=== PATIENT | female | born 1960 | race Caucasian/White ===

== ENCOUNTER 2017-05-21 10:40 | Emergency (ER) | payer OTHER ==
[~2017-05-21] VITALS: Ht 175.3 cm; Wt 97.6 kg
[2017-05-21 10:40] VITALS: TEMP 36.9
[~2017-05-21 10:40] MED LIST: CLOP1TAB5 PO; IPRA1AER2 INH; METO-452 PO; NCDT21X TD; OXYC5TAB PO; SERT50TA PO
[2017-05-21] MEDS ORDERED: METO25TA4 PO (11:10)
[2017-05-21] MEDS ORDERED: TRAZ1TAB52 PO (11:10)
[2017-05-21] MEDS ORDERED: GABA600T PO (11:10)
[2017-05-21] MEDS ORDERED: OMEP20TA PO (11:10)
[2017-05-21] MEDS ORDERED: TRAZ-119 PO (11:10)
[2017-05-21] MEDS ORDERED: WARF5TAB7 PO ×2 (11:10)
[2017-05-21] MEDS ORDERED: ABL10 PO (11:10)
[2017-05-21] MEDS ORDERED: SODIUM CHLORIDE 0.9% 1000ML 1,000 ML IV STA (11:23)
[2017-05-21] MEDS ORDERED: PROMETHAZINE HCL INJ 25 MG in SODIUM CHLORIDE 0.9% 50ML 50 ML IV STA (11:23)
--- NOTE | 2017-05-21 11:27 | EMERGENCY ROOM VISIT NOTE ---
History Report prepared by Rylee: Swati Torres Under the Supervision of: Dr. Melo Lowe D.O. First contact with patient: 11:12 Chief Complaint: HEADACHE Stated Complaint: BREATHING DIFFICULTY History of Present Illness The patient is a 56 year old female who presents to the Emergency Room with complaints of a headache beginning 2 days ago. She states that the pain is in the back of her head and that it radiates to the top of her head. She rates the pain at a 7/10. The patient reports having weakness in right arm but that she has had this since she had a stroke. She states that she did not take medication for her headache and states that it is worse at night. She also reports having chest pain when she takes a deep breath and reports having a cough. The patient reports having a pacemaker and a mechanical valve, and states that she is on Coumadin. She states that she smokes. Source of History: patient Onset: 2 days ago Position: head Symptom Intensity: rated at a 7/10 Quality: other (headache ) Associated Symptoms: + cough, + chest pain Review of Systems See HPI for pertinent positives & negatives. A total of 10 systems reviewed and were otherwise negative. Past Medical & Surgical Medical Problems: (1) Depression Surgical Problems: (1) Mitral valve replaced Family History No pertinent family history Social History Smoking Status: Current Every Day Smoker Drug Use: marijuana, other Current/Historical Medications Scheduled Aripiprazole (Abilify), 10 MG PO DAILY Gabapentin (Neurontin), 600 MG PO TID Metoprolol Succinate (Toprol Xl), 25 MG PO DAILY Omeprazole (Omeprazole), 20 MG PO DAILY Trazodone Hcl (Desyrel), 50 MG PO DAILY Trazodone Hcl (Desyrel), 150 MG PO DAILY Warfarin Sod (Jantoven), 10 MG PO WK Warfarin Sod (Jantoven), 5 MG PO [id number] Allergies Coded Allergies: Oxytetracycline (Verified Allergy, Unknown, TERRAMYCIN, 02/21/13) Aspirin (Verified Allergy, unk, 02/14/13) Cephalexin (Verified Allergy, unk, 02/14/13) Physical Exam Vital Signs Date Time Temp Pulse Resp B/P (MAP) Pulse Ox O2 Delivery O2 Flow Rate FiO2 05/21/17 14:13 58 13 152/87 94 05/21/17 12:59 50 14 140/74 94 Room Air 05/21/17 12:34 54 20 152/89 98 Room Air 05/21/17 12:09 50 15 135/72 94 Room Air 05/21/17 12:02 93 Room Air 05/21/17 12:02 93 Room Air 05/21/17 10:53 73 05/21/17 10:40 36.9 73 14 122/89 97 Room Air Physical Exam GENERAL: Patient is awake, alert, and in no acute distress. Patient is resting comfortably and showing no signs of anxiety EYES: The conjunctivae are clear. The pupils are round and reactive. EARS, NOSE, MOUTH AND THROAT: The nose is without any evidence of any deformity. Mucous membranes are moist tongue is midline NECK: The neck is nontender and supple. RESPIRATORY: Normal respiratory effort is noted there is no evidence of wheezing rhonchi or rales CARDIOVASCULAR: Regular rate and rhythm noted there no murmurs rubs or gallops normal S1 normal S2 GASTROINTESTINAL: The abdomen is soft. Bowel sounds are present in all quadrants. Abdomen is nontender MUSCULOSKELETAL/EXTREMITIES: There is no evidence of gross deformity full range of motion is noted in the hips and shoulders SKIN: There is no obvious evidence of any rash. There are no petechiae, pallor or cyanosis noted. NEUROLOGIC: Patient is awake alert and oriented x3 strength is symmetric, no drift in upper extremity Medical Decision & Procedures ER Provider Diagnostic Interpretation: Radiology results as stated below per my review and radiologist interpretation: CT HEAD WITHOUT CONTRAST (CT) CLINICAL HISTORY: Left-sided headache. Weakness. COMPARISON STUDY: No previous studies for comparison. TECHNIQUE: Axial CT of the brain is performed from the vertex to the skull base. IV contrast was not administered for this examination. A dose lowering technique was utilized adhering to the principles of ALARA. CT DOSE: 659.15 mGycm FINDINGS: No intra or extra-axial mass lesions are visualized. There is no CT evidence of acute cortical infarction. There is no evidence of midline shift. There is no acute hemorrhage. No calvarial fractures are visualized. There are patchy white matter hypodensities likely on a small vessel basis. There is an old left MCA distribution infarct. There is no evidence of pathologic ventricular dilatation. There is no evidence of acute sinusitis. There is asymmetric mastoid pneumatization, likely chronic IMPRESSION: Old left MCA distribution infarct. No acute intracranial findings Electronically signed by: Seth Carr M.D. 05/21/2017 12:30 PM Dictated Date/Time: 05/21/2017 12:29 PM SINGLE VIEW CHEST CLINICAL HISTORY: Change in mental status. Weakness. FINDINGS: An AP, portable, upright chest radiograph is compared to study dated 02/14/2013. The examination is degraded by portable technique and patient rotation. A 2-lead cardiac pacemaker is unchanged in position and partially obscures the left upper chest. The patient is status post midline sternotomy and cardiac valve surgery. The heart is enlarged and there is atherosclerotic calcification of the thoracic aorta. The pulmonary vasculature is noncongested. Emphysema is suspected. Chronic interstitial thickening is similar to previous. Bibasilar airspace opacities likely represent atelectasis. No large pleural effusion or pneumothorax is seen. The skeletal structures are osteopenic. The bony thorax is grossly intact. IMPRESSION: 1. Cardiomegaly and cardiac pacemaker. There is no radiographic evidence of congestive failure. 2. Bibasilar airspace opacities likely represent atelectasis. Clinical correlation will be required. Electronically signed by: Prashant Moon M.D. 05/21/2017 11:33 AM Dictated Date/Time: 05/21/2017 11:32 AM Laboratory Results 05/21/17 10:14 Red Blood Count 5.11, Mean Corpuscular Volume 90.4, Mean Corpuscular Hemoglobin 31.3, Mean Corpuscular Hemoglobin Concent 34.6, Mean Platelet Volume 10.4, Neutrophils (%) (Auto) 61.8, Lymphocytes (%) (Auto) 22.8, Monocytes (%) (Auto) 10.8, Eosinophils (%) (Auto) 3.7, Basophils (%) (Auto) 0.5, Neutrophils # (Auto ) 5.08, Lymphocytes # (Auto) 1.87, Monocytes # (Auto) 0.89, Eosinophils # (Auto ) 0.30, Basophils # (Auto) 0.04 05/21/17 10:14 Test 05/21/17 10:14 05/21/17 12:11 05/21/17 12:13 White Blood Count 8.21 K/uL (4.8-10.8) Red Blood Count 5.11 M/uL (4.2-5.4) Hemoglobin 16.0 g/dL (12.0-16.0) Hematocrit 46.2 % (37-47) Mean Corpuscular Volume 90.4 fL (80-100) Mean Corpuscular Hemoglobin 31.3 pg (25-34) Mean Corpuscular Hemoglobin Concent 34.6 g/dl (32-36) Platelet Count 221 K/uL (130-400) Mean Platelet Volume 10.4 fL (7.4-10.4) Neutrophils (%) (Auto) 61.8 % Lymphocytes (%) (Auto) 22.8 % Monocytes (%) (Auto) 10.8 % Eosinophils (%) (Auto) 3.7 % Basophils (%) (Auto) 0.5 % Neutrophils # (Auto) 5.08 K/uL (1.4-6.5) Lymphocytes # (Auto) 1.87 K/uL (1.2-3.4) Monocytes # (Auto) 0.89 K/uL (0.11-0.59) Eosinophils # (Auto) 0.30 K/uL (0-0.5) Basophils # (Auto) 0.04 K/uL (0-0.2) RDW Standard Deviation 47.0 fL (36.4-46.3) RDW Coefficient of Variation 14.1 % (11.5-14.5) Immature Granulocyte % (Auto) 0.4 % Immature Granulocyte # (Auto) 0.03 K/uL (0.00-0.02) Prothrombin Time 12.1 SECONDS (9.0-12.0) Prothromb Time International Ratio 1.2 (0.9-1.1) Activated Partial Thromboplast Time 28.0 SECONDS (21.0-31.0) Partial Thromboplastin Ratio 1.1 Anion Gap 8.0 mmol/L (3-11) Est Creatinine Clear Calc Drug Dose 80.5 ml/min Estimated GFR () 75.7 Estimated GFR (Non- 65.3 BUN/Creatinine Ratio 11.9 (10-20) Calcium Level 9.0 mg/dl (8.5-10.1) Magnesium Level 1.7 mg/dl (1.8-2.4) Total Bilirubin 0.4 mg/dl (0.2-1) Direct Bilirubin < 0.1 mg/dl (0-0.2) Aspartate Amino Transf (AST/SGOT) 11 U/L (15-37) Alanine Aminotransferase (ALT/SGPT) 13 U/L (12-78) Alkaline Phosphatase 76 U/L (45-117) Troponin I < 0.015 ng/ml (0-0.045) Total Protein 7.8 gm/dl (6.4-8.2) Albumin 3.7 gm/dl (3.4-5.0) Thyroid Stimulating Hormone (TSH) 2.260 uIu/ml (0.300-4.500) Carboxyhemoglobin 3.8 % THgb Urine Color YELLOW Urine Appearance CLEAR (CLEAR) Urine pH 5.5 (4.5-7.5) Urine Specific [place] 1.009 (1.000-1.030) Urine Protein NEG (NEG) Urine Glucose (UA) NEG (NEG) Urine Ketones NEG (NEG) Urine Occult Blood NEG (NEG) Urine Nitrite NEG (NEG) Urine Bilirubin NEG (NEG) Urine Urobilinogen NEG (NEG) Urine Leukocyte Esterase NEG (NEG) Laboratory results per my review. Medications Administered Medications (Trade) Dose Ordered Sig/Van Route Start Time Stop Time Status Last Admin Dose Admin Sodium Chloride 1,000 ml @ 999 mls/hr Q1H1M STAT IV 05/21/17 11:23 05/21/17 12:23 DC 05/21/17 12:09 999 MLS/HR Promethazine HCl 25 mg/Sodium Chloride 51 ml @ 204 mls/hr NOW STAT IV 05/21/17 11:23 05/21/17 11:37 DC 05/21/17 12:09 204 MLS/HR Magnesium Sulfate (Magnesium Sulfate) 1 gm NOW STAT IV 05/21/17 12:24 05/21/17 12:25 DC 05/21/17 12:59 1 GM ECG Per My Interpretation Indication: SOB/dyspnea Rate (beats per minute): 60 Rhythm: other (ventricular paced ) Findings: other (no [place] beats noted ) Change: no significant change (from 02/18/13) ED Course 1121: The patient was evaluated in room C8. A complete history and physical examination were performed. 1123: Ordered Promethazine HCl 25 mg/Sodium Chloride 51 ml @ 204 mls/hr IV, Sodium Chloride 1,000 ml @ 999 mls/hr IV. 1224: Ordered Magnesium Sulfate 1 gm IV. 1250: Upon reevaluation, the patient is resting. I discussed the results and treatment plan with her. She verbalized agreement of the treatment plan. She was discharged home. Medical Decision Differential Diagnoses: Intracranial hemorrhage, intracranial mass, migraine headache, tension headache , sinusitis, meningitis Nursing notes reviewed. The patient is a 56-year-old female who presented to the emergency department for an ongoing headache which began a few days ago. She has no meningismus or focal neurologic deficits. She has a history of a stroke and her exam appears to be at baseline. I discussed the patient's laboratory and radiographic studies with her. She states that she has a carbon monoxide detector at home. She also smokes. I think this is the reason for her elevated carbon monoxide level in the emergency department today. She was encouraged to stop smoking. She was also encouraged to follow-up with her family doctor for further evaluation. The CAT scan did not show any acute disease. I do not feel that she could benefit from a lumbar puncture at this time because she is on Coumadin and I do not have a high suspicion for meningitis or intracranial hemorrhage at this time. She was encouraged to return the emergency department immediately if symptoms change worsen or the need arises. Medication Reconcilliation Current Medication List: was personally reviewed by me Blood Pressure Screening Patient's blood pressure: Elevated blood pressure Blood pressure disposition: Elevated BP felt to be situational Impression Primary Impression: Headache Additional Impression: Hypomagnesemia Scribe Attestation The scribe's documentation has been prepared under my direction and personally reviewed by me in its entirety. I confirm that the note above accurately reflects all work, treatment, procedures, and medical decision making performed by me. Departure Information Dispostion Home / Self-Care Referrals Clover Velasquez D.O. (PCP) Omid Powers PA-C Forms HOME CARE DOCUMENTATION FORM, IMPORTANT VISIT INFORMATION Patient Instructions ED Smoking Cessation, Headache Pain, My [facility] Additional Instructions Continue all medications as prescribed. Your Coumadin level was low today. Have your Coumadin level rechecked again within the next few days. Call your family doctor to schedule a follow-up appointment. Rest and avoid any strenuous activity. Return to the emergency department immediately if symptoms change worsening of the need arises Problem Qualifiers Primary Impression: Headache Headache type: unspecified Headache chronicity pattern: acute headache Intractability: not intractable Qualified Codes: R51 - Headache
--- NOTE | 2017-05-21 11:35 | DIAGNOSTIC IMAGING REPORT ---
SINGLE VIEW CHEST CLINICAL HISTORY: Change in mental status. Weakness. FINDINGS: An AP, portable, upright chest radiograph is compared to study dated 02/14/2013. The examination is degraded by portable technique and patient rotation. A 2-lead cardiac pacemaker is unchanged in position and partially obscures the left upper chest. The patient is status post midline sternotomy and cardiac valve surgery. The heart is enlarged and there is atherosclerotic calcification of the thoracic aorta. The pulmonary vasculature is noncongested. Emphysema is suspected. Chronic interstitial thickening is similar to previous. Bibasilar airspace opacities likely represent atelectasis. No large pleural effusion or pneumothorax is seen. The skeletal structures are osteopenic. The bony thorax is grossly intact. IMPRESSION: 1. Cardiomegaly and cardiac pacemaker. There is no radiographic evidence of congestive failure. 2. Bibasilar airspace opacities likely represent atelectasis. Clinical correlation will be required. Electronically signed by: Prashant Moon M.D. 05/21/2017 11:33 AM Dictated Date/Time: 05/21/2017 11:32 AM
[2017-05-21 11:55] LABS: BASO % 0.5 %; BASO ABS # 0.04 K/uL (0-0.2); EOS % 3.7 %; HEMATOCRIT 46.2 % (37-47); IG# 0.03 K/uL (0.00-0.02); LYMPH % 22.8 %; LYMPH ABS # 1.87 K/uL (1.2-3.4); MEAN CELL VOLUME 90.4 fL (80-100); MEAN CORPUSCULAR HEMOGLOBIN 31.3 pg (25-34); MEAN CORPUSCULAR HGB CONC 34.6 g/dl (32-36); MEAN PLATELET VOLUME 10.4 fL (7.4-10.4); MONO % 10.8 %; MONO ABS # 0.89 K/uL (0.11-0.59); NEUT % 61.8 %; NEUT ABS # 5.08 K/uL (1.4-6.5); PLATELET COUNT 221 K/uL (130-400); RED CELL DISTRIBUTION WIDTH CV 14.1 % (11.5-14.5); WHITE BLOOD COUNT 8.21 K/uL (4.8-10.8)
[2017-05-21 12:00] LABS: INR 1.2 (0.9-1.1)
[2017-05-21 12:02] VITALS: O2SAT 93; Ht 175.3 cm; Wt 97.6 kg
[2017-05-21 12:16] LABS: ALBUMIN 3.7 gm/dl (3.4-5.0); ALT/SGPT 13 U/L (12-78); BLOOD UREA NITROGEN 12 mg/dl (7-18); CARBON DIOXIDE 24 mmol/L (21-32); CREATININE 0.97 mg/dl (0.60-1.20); GLUCOSE 123 mg/dl (70-99); POTASSIUM 3.7 mmol/L (3.5-5.1); SODIUM 137 mmol/L (136-145)
[2017-05-21] MEDS ORDERED: MAGNESIUM SULFATE 1GM / D5W 1 GM BAG IV STA (12:24)
[2017-05-21 12:27] LABS: ALKALINE PHOSPHATASE 76 U/L (45-117); AST/SGOT 11 U/L (15-37); TOTAL PROTEIN 7.8 gm/dl (6.4-8.2)
--- NOTE | 2017-05-21 12:31 | DIAGNOSTIC IMAGING REPORT ---
CT HEAD WITHOUT CONTRAST (CT) CLINICAL HISTORY: Left-sided headache. Weakness. COMPARISON STUDY: No previous studies for comparison. TECHNIQUE: Axial CT of the brain is performed from the vertex to the skull base. IV contrast was not administered for this examination. A dose lowering technique was utilized adhering to the principles of ALARA. CT DOSE: 659.15 mGycm FINDINGS: No intra or extra-axial mass lesions are visualized. There is no CT evidence of acute cortical infarction. There is no evidence of midline shift. There is no acute hemorrhage. No calvarial fractures are visualized. There are patchy white matter hypodensities likely on a small vessel basis. There is an old left MCA distribution infarct. There is no evidence of pathologic ventricular dilatation. There is no evidence of acute sinusitis. There is asymmetric mastoid pneumatization, likely chronic IMPRESSION: Old left MCA distribution infarct. No acute intracranial findings Electronically signed by: Seth Carr M.D. 05/21/2017 12:30 PM Dictated Date/Time: 05/21/2017 12:29 PM
[2017-05-21 14:13] VITALS: BP 152/87; PULSE 58; O2SAT 94
== END 2017-05-21 14:13 | disposition home or self-care (01) ==
LOC: EDBD 10:40 → EDSEX 10:40 → C.EDC 10:42
DX: R51 Headache (principal); E83.42 Hypomagnesemia; R03.0 Elevated blood-pressure reading, without diagnosis of hypertension; F32.9 Major depressive disorder, single episode, unspecified; F17.200 Nicotine dependence, unspecified, uncomplicated; Z86.73 Personal history of transient ischemic attack (TIA), and cerebral infarction without residual deficits; Z95.0 Presence of cardiac pacemaker; Z95.2 Presence of prosthetic heart valve; Z79.01 Long term (current) use of anticoagulants; Z88.1 Allergy status to other antibiotic agents; Z88.6 Allergy status to analgesic agent